=== PATIENT | female | born 1995 | race Caucasian/White ===

== ENCOUNTER 2017-04-25 16:32 | Observation (INO) | payer OTHER ==
[~2017-04-25] VITALS: Ht 157.5 cm; Wt 59.1 kg
[2017-04-25 16:54] VITALS: BP 136/90; PULSE 97; RESP 15; TEMP 98.5; O2SAT 100
[2017-04-25] MEDS ORDERED: MORPHINE SULFATE 2 MG/ML INJ IV PUSH ONE (18:00)
--- NOTE | 2017-04-25 18:00 | PD ---
HPI Chief Complaint: Abdominal Pain Time Seen by Provider: 17:49 Travel History International Travel<30 days: No Contact w/Intl Traveler<30days: No Traveled to known affect area: No History of Present Illness HPI 21yo F with no PMH presents to the ED with c/o right lower abdominal pain, fever today. Said she has been having vomiting after eating for about a month. However, had 101F fever today and started having sharp RLQ pain today. Pt vomited after eating at 1:30pm today. Went to PMD and was sent to the ED for further evaluation. Denies chest pain, sob, dysuria, hematuria, vaginal bleeding or discharge. Denies any PSH. PFSH Past Medical History Medical other: Yes (HYPOGLYCEMIC ) ?: Not LMP: 04/18/2017 Past Surgical History Surgical History: No Previous Surgery Social History Alcohol Use: Yes (OCC) Tobacco Use: No Substance Use: No Allergies-Medications (Allergen,Severity, Reaction): Uncoded Allergies: TEMP CHANGE ALLERGY (Adverse Reaction, Intermediate, 04/25/17) PT BREAKS OUT INTO HIVES WITH MODERATE TEMP CHANGES Review of Systems Except as stated in HPI: all other systems reviewed are Neg Physical Exam Narrative GENERAL: 21yo F in mild distress. SKIN: Focused skin assessment warm/dry. HEAD: Atraumatic. Normocephalic. CARDIOVASCULAR: Regular rate and rhythm. No murmur appreciated. RESPIRATORY: No accessory muscle use. Clear to auscultation. Breath sounds equal bilaterally. GASTROINTESTINAL: Abdomen soft, +TTP RLQ. No rebound tenderness or guarding. PELVIC: +White vaginal discharge. No CMT or adnexal tenderness bilaterally. MUSCULOSKELETAL: No obvious deformities. No clubbing. No cyanosis. No edema. NEUROLOGICAL: Awake and alert. No obvious cranial nerve deficits. Motor grossly within normal limits. Normal speech. PSYCHIATRIC: Appropriate mood and affect; insight and judgment normal. Data Data Last Documented VS Vital Signs Date Time Temp Pulse Resp B/P (MAP) Pulse Ox O2 Delivery O2 Flow Rate FiO2 04/25/17 20:39 16 04/25/17 16:54 98.5 97 136/90 (105) 100 Orders Orders Complete Blood Count With Diff (04/25/17 16:56) Comprehensive Metabolic Panel (04/25/17 16:56) Lipase (04/25/17 16:56) Prothrombin Time / Inr (Pt) (04/25/17 16:56) Act Partial Throm Time (Ptt) (04/25/17 16:56) Urinalysis - C+S If Indicated (04/25/17 16:56) Ed Urine Pregnancytest Poc (04/25/17 16:56) Ct Abd/Pel W Iv Contrast(Rout) (04/25/17 ) Morphine Inj (Morphine Inj) (04/25/17 18:00) NPO (04/25/17 18:01) Iohexol 350 Inj (Omnipaque 350 Inj) (04/25/17 18:42) Gc And Chlamydia Pcr (04/25/17 20:23) Wet Prep Profile (04/25/17 20:23) Us Pelvis Comp W Dop Transvag (04/25/17 20:23) Admit Order (Ed Use Only) (04/25/17 22:49) Consult General Surgery (04/25/17 ) Labs Laboratory Tests Test 04/25/17 19:30 04/25/17 19:55 04/25/17 20:33 White Blood Count 5.2 TH/MM3 Red Blood Count 4.85 MIL/MM3 Hemoglobin 14.0 GM/DL Hematocrit 40.5 % Mean Corpuscular Volume 83.4 FL Mean Corpuscular Hemoglobin 28.8 PG Mean Corpuscular Hemoglobin Concent 34.5 % Red Cell Distribution Width 13.1 % Platelet Count 287 TH/MM3 Mean Platelet Volume 8.4 FL Neutrophils (%) (Auto) 60.8 % Lymphocytes (%) (Auto) 29.6 % Monocytes (%) (Auto) 7.1 % Eosinophils (%) (Auto) 1.3 % Basophils (%) (Auto) 1.2 % Neutrophils # (Auto) 3.1 TH/MM3 Lymphocytes # (Auto) 1.5 TH/MM3 Monocytes # (Auto) 0.4 TH/MM3 Eosinophils # (Auto) 0.1 TH/MM3 Basophils # (Auto) 0.1 TH/MM3 CBC Comment DIFF FINAL Differential Comment Prothrombin Time 10.8 SEC Prothromb Time International Ratio 1.1 RATIO Activated Partial Thromboplast Time 25.9 SEC Blood Urea Nitrogen 13 MG/DL Creatinine 0.82 MG/DL Random Glucose 80 MG/DL Total Protein 7.5 GM/DL Albumin 4.2 GM/DL Calcium Level 9.1 MG/DL Alkaline Phosphatase 64 U/L Aspartate Amino Transf (AST/SGOT) 21 U/L Alanine Aminotransferase (ALT/SGPT) 34 U/L Total Bilirubin 0.6 MG/DL Sodium Level 137 MEQ/L Potassium Level 3.5 MEQ/L Chloride Level 104 MEQ/L Carbon Dioxide Level 26.3 MEQ/L Anion Gap 7 MEQ/L Estimat Glomerular Filtration Rate 86 ML/MIN Lipase 163 U/L Urine Color LIGHT-YELLOW Urine Turbidity CLEAR Urine pH 7.0 Urine Specific [place] GREATER THAN 1.050 Urine Protein 30 mg/dL Urine Glucose (UA) NEG mg/dL Urine Ketones 10 mg/dL Urine Occult Blood NEG Urine Nitrite NEG Urine Bilirubin NEG Urine Urobilinogen LESS THAN 2.0 MG/DL Urine Leukocyte Esterase NEG Urine RBC 1 /hpf Urine WBC LESS THAN 1 /hpf Urine Squamous Epithelial Cells 3 /hpf Microscopic Urinalysis Comment CULT NOT INDICATED Clue Cells (Wet Prep) NONE SEEN Vaginal Trichomonas (Wet Prep) NONE SEEN Vaginal Yeast (Wet Prep) NONE SEEN Chlamydia trachomatis DNA (PCR) NOT DETECTED Neisseria gonorrhoeae DNA (PCR) NOT DETECTED MDM Medical Decision Making Medical Screen Exam Complete: Yes Emergency Medical Condition: Yes Differential Diagnosis Appendicitis vs. cystitis vs. colitis vs. nephrolithiasis Narrative Course 21yo F with fever, nausea and RLQ pain today. Pt said she has also been vomiting after eating for 1 month. Pt is afebrile here but said she had temp of 101F at home. Labs reviewed, no leukocytosis. H/H normal. CMP unremarkable. Lipase normal. CT a/p showed no acute abnormality. The appendix is not discreetly identified though there are no inflammatory changes in the right lower quadrant. Pt given 2mg of morphine and pain has improved but stringing machine tender to palpation in RLQ. Said she actually does have vaginal discharge but has white discharge all the time so she initially said no. Pelvic showed small amount of white vaginal discharge but unremarkable exam otherwise. Wet prep negative. US pelvis showed no adnexal mass or free fluid. Normal doppler flow present bilaterally. Pt reevaluated and said she still has pain about 5-6 out of 10. Abdomen is soft, +TTP RLQ. No rebound tenderness or guarding. Pt is well appearing but unknown why she is having pain. Since the appendix is not identified, will admit for observation for serial abdominal exam. Discussed with general surgeon Dr. Guzman who is health information technician and agrees to see the patient. Routine surgery consult placed. Discussed with Dr. Flynn's PA and accepted to her service. Diagnosis Primary Impression: Abdominal pain Qualified Codes: R10.31 - Right lower quadrant pain Admitting Information Admitting Physician Requests: Fiona Amador DO Apr 25, 2017 18:00
[2017-04-25] MEDS ORDERED: IOHEXOL 350 MG/ML 10 ML VIAL (for RAD DIAG) IVCONTRAST ONE (18:42)
--- NOTE | 2017-04-25 19:09 | RADRPT ---
EXAM DATE/TIME: 04/25/2017 18:32 [facility] COMPARISON: No previous studies available for comparison. INDICATIONS : Diffuse lower right sided abdomen pain. IV CONTRAST: 76 cc Omnipaque 350 (iohexol) IV ORAL CONTRAST: No oral contrast ingested. RADIATION DOSE: 6.01 CTDIvol (mGy) MEDICAL HISTORY : None SURGICAL HISTORY : None. ENCOUNTER: Initial ACUITY: 1 day PAIN SCALE: 9/10 LOCATION: Right lower quadrant TECHNIQUE: Volumetric scanning of the abdomen and pelvis was performed. Using automated exposure control and ad justment of the mA and/or kV according to patient size, radiation dose was kept as low as reasonably achievable to obtain optimal diagnostic quality images. DICOM format image data is available electro nically for review and comparison. FINDINGS: LOWER LUNGS: The visualized lower lungs are clear. LIVER: Homogeneous density without lesion. There is no dilation of the biliary tree. No calcified gallston es. SPLEEN: Normal size without lesion. PANCREAS: Within normal limits. KIDNEYS: Normal in size and shape. There is no mass, stone or hydronephrosis. ADRENAL GLANDS: Within normal limits. VASCULAR: There is no aortic aneurysm. BOWEL/MESENTERY: The stomach, small bowel, and colon demonstrate no acute abnormality. There is no free intraperitone al air or fluid. The appendix is not discretely identified though there are no inflammatory changes i n the right lower quadrant. ABDOMINAL WALL: Within normal limits. RETROPERITONEUM: There is no lymphadenopathy. BLADDER: No wall thickening or mass. REPRODUCTIVE: Within normal limits. INGUINAL: There is no lymphadenopathy or hernia. MUSCULOSKELETAL: Within normal limits for patient age. CONCLUSION: 1. No evidence of acute abdominal or pelvic process. No masses are identified. Sulaiman Lizarraga MD on April 25, 2017 at 19:06 Board Certified Radiologist. This report was verified electronically.
[2017-04-25 19:48] LABS: AUTOMATED NEUTROPHIL # 3.1 TH/MM3 (1.8-7.7); BASOPHIL # 0.1 TH/MM3 (0-0.2); BASOPHIL % 1.2 % (0.0-2.0); EOSINOPHIL # 0.1 TH/MM3 (0-0.4); EOSINOPHIL % 1.3 % (0.0-4.0); HEMATOCRIT 40.5 % (35.0-46.0); LYMPH % 29.6 % (9.0-44.0); LYMPHOCYTE # 1.5 TH/MM3 (1.0-4.8); MEAN CELL VOLUME 83.4 FL (80.0-100.0); MEAN CORPUSCULAR HEMOGLOBIN 28.8 PG (27.0-34.0); MEAN CORPUSCULAR HGB CONC 34.5 % (32.0-36.0); MEAN PLATELET VOLUME 8.4 FL (7.0-11.0); MONO % 7.1 % (0.0-8.0); MONOCYTE # 0.4 TH/MM3 (0-0.9); NEUT % 60.8 % (16.0-70.0); PLATELET COUNT 287 TH/MM3 (150-450); RED BLOOD COUNT 4.85 MIL/MM3 (4.00-5.30); RED CELL DISTRIBUTION WIDTH 13.1 % (11.6-17.2); WHITE BLOOD COUNT 5.2 TH/MM3 (4.0-11.0)
[2017-04-25 19:57] LABS: INTERNATIONAL NORMALIZED RATIO 1.1 RATIO; PROTHROMBIN TIME - PATIENT 10.8 SEC (9.8-11.6)
[2017-04-25 20:00] VITALS: BP 132/78; PULSE 88; RESP 16; O2SAT 100
[2017-04-25 20:04] LABS: ALBUMIN 4.2 GM/DL (3.4-5.0); AST (GOT) 21 U/L (15-37); BICARBONATE 26.3 MEQ/L (21.0-32.0); BLOOD UREA NITROGEN 13 MG/DL (7-18); CALCIUM 9.1 MG/DL (8.5-10.1); CHLORIDE 104 MEQ/L (98-107); CREATININE 0.82 MG/DL (0.50-1.00); GLOMERULAR FILTRATION RATE 86 ML/MIN (>89); GLUCOSE,RANDOM 80 MG/DL (74-106); SODIUM (NA) 137 MEQ/L (136-145)
[2017-04-25 20:07] LABS: ALKALINE PHOSPHATASE 64 U/L (45-117); ALT (GPT) 34 U/L (10-53); TOTAL BILIRUBIN ADULT 0.6 MG/DL (0.2-1.0); TOTAL PROTEIN 7.5 GM/DL (6.4-8.2)
[2017-04-25 21:15] LABS: BILIRUBIN, URINE NEG (NEG); BLOOD, URINE NEG (NEG); GLUCOSE,URINE NEG (NEG); KETONE, URINE 10 mg/dL (NEG); NITRITE,URINE NEG (NEG); SQUAMOUS EPITHELIAL CELL URINE 3 /hpf (0-5); URINE COLOR LIGHT-YELLOW (YELLW/STRAW); URINE LEUKOCYTE ESTERASE NEG (NEG)
--- NOTE | 2017-04-25 22:00 | RADRPT ---
EXAM DATE/TIME: 04/25/2017 21:11 [facility] COMPARISON: No previous studies available for comparison. INDICATIONS : Pelvic pain. MEDICAL HISTORY : Hypoglycemia. Alcohol use. SURGICAL HISTORY : None. ENCOUNTER: Initial ACUITY: 1 month PAIN SCORE: 4/10 LOCATION: Bilateral pelvis MEASUREMENTS: UTERUS: 6.7 x 4.1 x 3.0 cm ENDOMETRIAL STRIPE: 3 mm RIGHT OVARY: 3.5 x 2.4 x 1.8 cm LEFT OVARY: 2.3 x 2.4 x 1.8 cm cm FINDINGS: Ultrasound pelvis and uterus are normal size, shape and echogenicity without focal lesion. No free fl uid or adnexal masses are seen. Examination of right ovary demonstrates normal size, shape and echogenicity. Examination of the left ovary demonstrates normal size shape and echogenicity. Normal Doppler flow is present bilaterally. CONCLUSION: 1. Unremarkable ultrasound examination of the pelvis. Sulaiman Lizarraga MD on April 25, 2017 at 21:58 Board Certified Radiologist. This report was verified electronically.
[2017-04-25 23:00] VITALS: BP 130/74; PULSE 78; RESP 16; O2SAT 100
[2017-04-25] MEDS ORDERED: NALOXONE HCL 0.4 MG/ML AMP IV PUSH PRN (23:00)
[2017-04-25] MEDS ORDERED: ACETAMINOPHEN 325 MG TAB PO PRN (23:00)
[2017-04-25] MEDS ORDERED: SODIUM CHLOR 0.9% 1000 ML INJ 1,000 ML IV SCH (23:00)
--- NOTE | 2017-04-25 23:22 | HHI.HP ---
HPI Service [facility] Primary Care Physician No Primary Care Physician Admission Diagnosis Right lower abdominal pain Diagnoses: Chief Complaint: RLQ pain Travel History International Travel<30 Days: No Contact w/Intl Traveler <30 Da: No Traveled to Known Affected Are: No History of Present Illness 21 y/o female with no medical history presented to the ED with complaints of abdominal pain. Patient states for the last month she has been vomiting when she eats and this morning she developed a fever of 101 with RLQ abdominal pain. She states the pain was an 8/10, intermittent, stabbing to the RLQ with no radiation, and with associated nausea, worse with palpation. She states the morphine has helped lesson the pain. She was seen at her pcp office and was told to come to the hospital for evaluation. She denies any chest pain, or sob. Review of Systems Except as stated in HPI: all other systems reviewed are Neg Past Family Social History Past Medical History hypoglycemia at times Past Surgical History Patient denies any surgical history Allergies: Uncoded Allergies: TEMP CHANGE ALLERGY (Adverse Reaction, Intermediate, 04/25/17) PT BREAKS OUT INTO HIVES WITH MODERATE TEMP CHANGES Active Ordered Medications Current Medications Medications (Trade) Dose Ordered Sig/Roxanne Route Start Time Stop Time Status Last Admin (NS Flush) 2 ml UNSCH PRN IV FLUSH 04/25/17 23:00 (NS Flush) 2 ml BID IV FLUSH 04/26/17 09:00 (Tylenol) 650 mg Q4H PRN PO 04/25/17 23:00 (Zofran Inj) 4 mg Q6H PRN IVP 04/25/17 23:00 04/25/17 23:53 (Narcan Inj) 0.4 mg UNSCH PRN IV PUSH 04/25/17 23:00 (Morphine Inj) 2 mg Q3H PRN IV PUSH 04/25/17 23:00 (Morphine Inj) 4 mg Q3H PRN IV PUSH 04/25/17 23:00 04/25/17 23:52 Dextrose/Sodium Chloride 1,000 ml @ 84 mls/hr [id number] IV 04/26/17 01:15 04/26/17 01:17 Family History Patient denies any family history, no dm or heart disease Social History Patient denies any tobacco, or alcohol use. Physical Exam Vital Signs Vital Signs Date Time Temp Pulse Resp B/P (MAP) Pulse Ox O2 Delivery O2 Flow Rate FiO2 04/25/17 20:39 16 04/25/17 16:54 98.5 97 15 136/90 (105) 100 Physical Exam GENERAL: This is a well-nourished, well-developed patient, in no apparent distress. SKIN: No rashes, ecchymoses or lesions. Cool and dry. HEAD: Atraumatic. Normocephalic. EYES: Pupils equal round and reactive. ENT: Nose without bleeding, purulent drainage or septal hematoma. Airway patent. NECK: Trachea midline. No JVD or lymphadenopathy. Supple, nontender, no meningeal signs. CARDIOVASCULAR: Regular rate and rhythm without murmurs, gallops, or rubs. RESPIRATORY: Clear to auscultation. Breath sounds equal bilaterally. No wheezes , rales, or rhonchi. GASTROINTESTINAL: Abdomen soft, RLQ tenderness, nondistended. No hepato- splenomegaly, or palpable masses. No guarding. MUSCULOSKELETAL: Extremities without clubbing, cyanosis, or edema. No joint tenderness, effusion, or edema noted. No calf tenderness. NEUROLOGICAL: Awake and alert.Motor and sensory grossly within normal limits. Normal speech. Laboratory Laboratory Tests Test 04/25/17 19:30 04/25/17 19:55 04/25/17 20:33 White Blood Count 5.2 Red Blood Count 4.85 Hemoglobin 14.0 Hematocrit 40.5 Mean Corpuscular Volume 83.4 Mean Corpuscular Hemoglobin 28.8 Mean Corpuscular Hemoglobin Concent 34.5 Red Cell Distribution Width 13.1 Platelet Count 287 Mean Platelet Volume 8.4 Neutrophils (%) (Auto) 60.8 Lymphocytes (%) (Auto) 29.6 Monocytes (%) (Auto) 7.1 Eosinophils (%) (Auto) 1.3 Basophils (%) (Auto) 1.2 Neutrophils # (Auto) 3.1 Lymphocytes # (Auto) 1.5 Monocytes # (Auto) 0.4 Eosinophils # (Auto) 0.1 Basophils # (Auto) 0.1 CBC Comment DIFF FINAL Differential Comment Prothrombin Time 10.8 Prothromb Time International Ratio 1.1 Activated Partial Thromboplast Time 25.9 Blood Urea Nitrogen 13 Creatinine 0.82 Random Glucose 80 Total Protein 7.5 Albumin 4.2 Calcium Level 9.1 Alkaline Phosphatase 64 Aspartate Amino Transf (AST/SGOT) 21 Alanine Aminotransferase (ALT/SGPT) 34 Total Bilirubin 0.6 Sodium Level 137 Potassium Level 3.5 Chloride Level 104 Carbon Dioxide Level 26.3 Anion Gap 7 Estimat Glomerular Filtration Rate 86 Lipase 163 Urine Color LIGHT-YELLOW Urine Turbidity CLEAR Urine pH 7.0 Urine Specific [place] GREATER THAN 1.050 Urine Protein 30 Urine Glucose (UA) NEG Urine Ketones 10 Urine Occult Blood NEG Urine Nitrite NEG Urine Bilirubin NEG Urine Urobilinogen LESS THAN 2.0 Urine Leukocyte Esterase NEG Urine RBC 1 Urine WBC LESS THAN 1 Urine Squamous Epithelial Cells 3 Microscopic Urinalysis Comment CULT NOT INDICATED Clue Cells (Wet Prep) NONE SEEN Vaginal Trichomonas (Wet Prep) NONE SEEN Vaginal Yeast (Wet Prep) NONE SEEN Result Diagram: 04/25/17192904/25/17 193 Imaging Last Impressions Abdomen/Pelvis/Transvag US 04/25/172022 Signed Impressions: Service Date/Time: Tuesday, April 25, 2017 21:11 - CONCLUSION: 1. Unremarkable ultrasound examination of the pelvis. Sulaiman Lizarraga MD Abdomen/Pelvis CT 04/25/17 0000 Signed Impressions: Service Date/Time: Tuesday, April 25, 2017 18:32 - CONCLUSION: 1. No evidence of acute abdominal or pelvic process. No masses are identified. MD Kvng Fisheri VTE Risk Assessment Caprini VTE Risk Assessment: No/Low Risk (score <= 1) Caprini Risk Assessment Model Point Value = 1 Point Value = 2 Point Value = 3 Point Value = 5 Age 41-60 Minor surgery BMI > 25 kg/m2 Swollen legs Varicose veins or History of unexplained or recurrent spontaneous Oral contraceptives or hormone replacement Sepsis (< 1 month) Serious lung disease, including pneumonia (< 1 month) Abnormal pulmonary function Acute myocardial infarction Congestive heart failure (< 1 month) History of inflammatory bowel disease Medical patient at bed rest Age 61-74 Arthroscopic surgery Major open surgery (> 45 min) Laparoscopic surgery (> 45 min) Malignancy Confined to bed (> 72 hours) Immobilizing plaster cast Central venous access Age >= 75 History of VTE Family history of VTE Factor V Leiden Prothrombin [id number] Lupus anticoagulant Anticardiolipin antibodies Elevated serum homocysteine Heparin-induced thrombocytopenia Other congenital or acquired thrombophilia Stroke (< 1 month) Elective arthroplasty Hip, pelvis, or leg fracture Acute spinal cord injury (< 1 month) Prophylaxis Regimen Total Risk Factor Score Risk Level Prophylaxis Regimen 0-1 Low Early ambulation 2 Moderate Order ONE of the following: *Sequential Compression Device (SCD) *Heparin 5000 units SQ BID 3-4 Higher Order ONE of the following medications: *Heparin 5000 units SQ TID *Enoxaparin/Lovenox 40 mg SQ daily (WT < 150 kg, CrCl > 30 mL/min) *Enoxaparin/Lovenox 30 mg SQ daily (WT < 150 kg, CrCl > 10-29 mL/min) *Enoxaparin/Lovenox 30 mg SQ BID (WT < 150 kg, CrCl > 30 mL/min) AND/OR *Sequential Compression Device (SCD) 5 or more Highest Order ONE of the following medications: *Heparin 5000 units SQ TID (Preferred with Epidurals) *Enoxaparin/Lovenox 40 mg SQ daily (WT < 150 kg, CrCl > 30 mL/min) *Enoxaparin/Lovenox 30 mg SQ daily (WT < 150 kg, CrCl > 10-29 mL/min) *Enoxaparin/Lovenox 30 mg SQ BID (WT < 150 kg, CrCl > 30 mL/min) AND *Sequential Compression Device (SCD) Assessment and Plan Problem List: (1) Abdominal pain ICD Code: R10.9 - Unspecified abdominal pain Status: Acute Assessment and Plan 21 y/o female with no medical history presented to the ED with complaints of abdominal pain. Abdominal pain, possible appendicitis CT abdomen reviewed unremarkable, appendix could not be visualized. -Consult general surgery for recommendations -Pain management with IV Morphine -IVF for hydration, Patient history or hypoglycemia, d51/2ns DVT prophylaxis: SCDs Discussed Condition With Patient and RN Problem Qualifiers (1) Abdominal pain: Qualified Codes: R10.31 - Right lower quadrant pain Odette Willoughby Apr 25, 2017 23:22
[2017-04-25] MEDS: MORPHINE SULFATE 4 MG/ML INJ IV PUSH PRN (23:52)
[2017-04-25] MEDS: ONDANSETRON HCL 4 MG/2 ML VIAL IVP PRN (23:53)
[2017-04-26 01:12] VITALS: BP 100/56; PULSE 61; RESP 16; TEMP 98.3; O2SAT 98
[2017-04-26] MEDS: DEXT 5%-NACL 0.45% 1000 ML INJ 1,000 ML IV SCH ×3 (01:17→21:31)
[2017-04-26 05:21] VITALS: BP 105/58; PULSE 76; RESP 16; TEMP 98.5; O2SAT 99
[2017-04-26] MEDS: SODIUM CHLORIDE 0.9% FLUSH 10 ML FLUSH IV FLUSH PRN ×2 (05:40→06:29)
[2017-04-26] MEDS: MORPHINE SULFATE 4 MG/ML INJ IV PUSH PRN ×2 (05:40→15:06)
[2017-04-26] MEDS: ONDANSETRON HCL 4 MG/2 ML VIAL IVP PRN (06:29)
[2017-04-26 07:01] LABS: BASOPHIL % 0.5 % (0.0-2.0); EOSINOPHIL # 0.1 TH/MM3 (0-0.4); EOSINOPHIL % 3.2 % (0.0-4.0); HEMATOCRIT 39.7 % (35.0-46.0); HEMOGLOBIN 13.7 GM/DL (11.6-15.3); LYMPH % 38.5 % (9.0-44.0); LYMPHOCYTE # 1.5 TH/MM3 (1.0-4.8); MEAN CELL VOLUME 84.6 FL (80.0-100.0); MEAN CORPUSCULAR HEMOGLOBIN 29.2 PG (27.0-34.0); MEAN CORPUSCULAR HGB CONC 34.5 % (32.0-36.0); MEAN PLATELET VOLUME 8.7 FL (7.0-11.0); MONOCYTE # 0.3 TH/MM3 (0-0.9); NEUT % 49.8 % (16.0-70.0); PLATELET COUNT 222 TH/MM3 (150-450); RED BLOOD COUNT 4.69 MIL/MM3 (4.00-5.30); RED CELL DISTRIBUTION WIDTH 13.4 % (11.6-17.2)
[2017-04-26 07:23] LABS: BICARBONATE 26.4 MEQ/L (21.0-32.0); CALCIUM 8.6 MG/DL (8.5-10.1); CREATININE 0.87 MG/DL (0.50-1.00)
[2017-04-26] MEDS: SODIUM CHLORIDE 0.9% FLUSH 10 ML FLUSH IV FLUSH SCH ×2 (08:13→21:00)
[2017-04-26 09:16] VITALS: BP 124/76; PULSE 81; RESP 18; TEMP 97.7; O2SAT 98
[2017-04-26] MEDS: MORPHINE SULFATE 2 MG/ML INJ IV PUSH PRN ×3 (09:30→18:17)
--- NOTE | 2017-04-26 10:11 | PD.CONS ---
cc: Alex Guzman MD HPI Service General Surgery Consult Requested By Odette DE LA O Reason for Consult RLQ abdominal pain Primary Care Physician No Primary Care Physician History of Present Illness This is a 21 year old female with no medical history who developed RLQ abdominal pain yesterday. She was in her usual state of health prior to that. She reports nausea without any vomiting. She had laboratory work that was essentially unremarkable. She had a CT abdomen pelvis which showed non visualization of the appendix. The patient reports sharp and constant abdominal pain. Her LMP was last week. Her last BM was yesterday. A General Surgery consultation has been requested. Review of Systems Constitutional: COMPLAINS OF: Fever, Chills, DENIES: Fatigue Endocrine: COMPLAINS OF: Heat/cold intolerance, DENIES: Polydipsia, Polyuria, Polyphagia Eyes: DENIES: Diplopia, Eye inflammation Ears, nose, mouth, throat: DENIES: Hearing loss Respiratory: DENIES: Cough Cardiovascular: DENIES: Chest pain Gastrointestinal: COMPLAINS OF: Abdominal pain, Nausea, DENIES: Vomiting Genitourinary: DENIES: Urinary frequency Musculoskeletal: DENIES: Joint pain Integumentary: DENIES: Abnormal pigmentation Hematologic/lymphatic: DENIES: Bruising Immunologic/allergic: DENIES: Eczema Neurologic: DENIES: Headache, Localized weakness Psychiatric: DENIES: Confusion, Mood changes Past Family Social History Past Medical History None Past Surgical History None Reported Medications None Allergies: Uncoded Allergies: TEMP CHANGE ALLERGY (Adverse Reaction, Intermediate, 04/25/17) PT BREAKS OUT INTO HIVES WITH MODERATE TEMP CHANGES Active Ordered Medications Current Medications Medications (Trade) Dose Ordered Sig/Roxanne Route Start Time Stop Time Status Last Admin (NS Flush) 2 ml UNSCH PRN IV FLUSH 04/25/17 23:00 04/26/17 06:29 (NS Flush) 2 ml BID IV FLUSH 04/26/17 09:00 (Tylenol) 650 mg Q4H PRN PO 04/25/17 23:00 (Zofran Inj) 4 mg Q6H PRN IVP 04/25/17 23:00 04/26/17 06:29 (Narcan Inj) 0.4 mg UNSCH PRN IV PUSH 04/25/17 23:00 (Morphine Inj) 2 mg Q3H PRN IV PUSH 04/25/17 23:00 04/26/17 09:30 (Morphine Inj) 4 mg Q3H PRN IV PUSH 04/25/17 23:00 04/26/17 05:40 Dextrose/Sodium Chloride 1,000 ml @ 84 mls/hr [id number] IV 04/26/17 01:15 04/26/17 01:17 Family History Noncontributory Social History Denies tobacco use Denies ETOH use Denies illicit drug use Works for [employer]. Just moved to the [facility] from [place]. Has a black labrador therapy dog. Physical Exam Vital Signs Vital Signs Date Time Temp Pulse Resp B/P (MAP) Pulse Ox O2 Delivery O2 Flow Rate FiO2 04/26/17 09:16 97.7 81 18 124/76 (92) 98 04/26/17 05:21 98.5 76 16 105/58 (74) 99 04/26/17 01:12 98.3 61 16 100/56 (71) 98 04/26/17 00:14 04/25/17 23:00 78 16 130/74 (92) 100 Room Air 04/25/17 20:39 16 04/25/17 20:00 88 16 132/78 (96) 100 Room Air 04/25/17 16:54 98.5 97 15 136/90 (105) 100 Physical Exam GENERAL: 21 year old female resting in bed in moderate discomfort from abdominal pain. SKIN: Warm and dry. HEAD: Atraumatic. Normocephalic. EYES: Pupils equal and round. No scleral icterus. No injection or drainage. ENT: No nasal bleeding or discharge. Mucous membranes pink and moist. NECK: Trachea midline. CARDIOVASCULAR: Regular rate and rhythm. RESPIRATORY: No accessory muscle use. Clear to auscultation. Breath sounds equal bilaterally. GASTROINTESTINAL: Abdomen soft, nondistended. RLQ tenderness with minimal palpation. Umbilicus piercing in place. No scars or hernias present. MUSCULOSKELETAL: Extremities without clubbing, cyanosis, or edema. No obvious deformities. NEUROLOGICAL: Awake and alert. No obvious cranial nerve deficits. Motor grossly within normal limits. Five out of 5 muscle strength in the arms and legs. Normal speech. PSYCHIATRIC: Appropriate mood and affect; insight and judgment normal. Laboratory Laboratory Tests Test 04/25/17 19:30 04/25/17 19:55 04/25/17 20:33 04/26/17 06:36 White Blood Count 5.2 4.0 Red Blood Count 4.85 4.69 Hemoglobin 14.0 13.7 Hematocrit 40.5 39.7 Mean Corpuscular Volume 83.4 84.6 Mean Corpuscular Hemoglobin 28.8 29.2 Mean Corpuscular Hemoglobin Concent 34.5 34.5 Red Cell Distribution Width 13.1 13.4 Platelet Count 287 222 Mean Platelet Volume 8.4 8.7 Neutrophils (%) (Auto) 60.8 49.8 Lymphocytes (%) (Auto) 29.6 38.5 Monocytes (%) (Auto) 7.1 8.0 Eosinophils (%) (Auto) 1.3 3.2 Basophils (%) (Auto) 1.2 0.5 Neutrophils # (Auto) 3.1 2.0 Lymphocytes # (Auto) 1.5 1.5 Monocytes # (Auto) 0.4 0.3 Eosinophils # (Auto) 0.1 0.1 Basophils # (Auto) 0.1 0.0 CBC Comment DIFF FINAL DIFF FINAL Differential Comment Prothrombin Time 10.8 Prothromb Time International Ratio 1.1 Activated Partial Thromboplast Time 25.9 Blood Urea Nitrogen 13 10 Creatinine 0.82 0.87 Random Glucose 80 92 Total Protein 7.5 Albumin 4.2 Calcium Level 9.1 8.6 Alkaline Phosphatase 64 Aspartate Amino Transf (AST/SGOT) 21 Alanine Aminotransferase (ALT/SGPT) 34 Total Bilirubin 0.6 Sodium Level 137 139 Potassium Level 3.5 3.8 Chloride Level 104 107 Carbon Dioxide Level 26.3 26.4 Anion Gap 7 6 Estimat Glomerular Filtration Rate 86 81 Lipase 163 Urine Color LIGHT-YELLOW Urine Turbidity CLEAR Urine pH 7.0 Urine Specific [place] GREATER THAN 1.050 Urine Protein 30 Urine Glucose (UA) NEG Urine Ketones 10 Urine Occult Blood NEG Urine Nitrite NEG Urine Bilirubin NEG Urine Urobilinogen LESS THAN 2.0 Urine Leukocyte Esterase NEG Urine RBC 1 Urine WBC LESS THAN 1 Urine Squamous Epithelial Cells 3 Microscopic Urinalysis Comment CULT NOT INDICATED Clue Cells (Wet Prep) NONE SEEN Vaginal Trichomonas (Wet Prep) NONE SEEN Vaginal Yeast (Wet Prep) NONE SEEN Chlamydia trachomatis DNA (PCR) NOT DETECTED Neisseria gonorrhoeae DNA (PCR) NOT DETECTED Result Diagram: 04/26/17 0636 04/26/1736 Imaging Last 48 hours Impressions Abdomen/Pelvis/Transvag US 04/25/172022 Signed Impressions: Service Date/Time: Tuesday, April 25, 2017 21:11 - CONCLUSION: 1. Unremarkable ultrasound examination of the pelvis. Sulaiman Lizarraga MD Abdomen/Pelvis CT 04/25/17 0000 Signed Impressions: Service Date/Time: Tuesday, April 25, 2017 18:32 - CONCLUSION: 1. No evidence of acute abdominal or pelvic process. No masses are identified. Sulaiman Lizarraga MD Assessment and Plan Problem List: (1) Acute abdomen ICD Codes: R10.0 - Acute abdomen Status: Acute (2) Localized peritonitis ICD Codes: K65.9 - Peritonitis, unspecified Status: Acute (3) Abdominal pain ICD Codes: R10.9 - Unspecified abdominal pain Status: Acute (4) Right lower quadrant abdominal pain ICD Codes: R10.31 - Right lower quadrant pain Status: Acute Assessment and Plan 21 year old female with RLQ abdominal pain with associated nausea -Will plan for diagnostic laparoscopy; laparoscopic appendectomy for this afternoon -NPO -IVF -Pain medications -Add Zosyn -Thank you for this consult; We will continue to follow Discussed Condition With Dr. Megan Kumar Attending Statement NOTE FOR SURGICAL ATTENDING, DR. ALEX GUZMAN Patient seen and examined in the emergency room. Reviewed imaging with Dr. Abran De La Torre Clinically she has a acute abdomen with peritonitis. The images do not help me in diagnosing the problem. I do not feel comfortable with just following her I think she would benefit from diagnostic laparoscopy. My clinical suspicion is she actually has appendicitis. This was discussed with the patient she appeared to understand I agree with above assessment and plan. The exam, history, and the medical decision-making described in the above note were completed with the assistance of the mid-level provider. I reviewed and agree with the findings presented. I attest that I had a [id number] encounter with the patient on the same day, and personally performed and documented my assessment and findings in the medical record. The following services were provided during this hospital visit: Chart data review, vital sign assessments/reviewing monitor data Review of consultations notes if present. Medication orders/review and/or management Ordering and/or reviewing lab tests Ordering and/or interpreting/reviewing x-rays and/or diagnostic studies Care of the patient and discussion of the patient with the care team Documentation time To help prompt me to consider important information that might be impacting today's encounter and assessment, information from prior notes written by myself or my colleagues may have been "brought forward/copy and pasted" into today's note. Problem Qualifiers (1) Abdominal pain: Qualified Codes: R10.31 - Right lower quadrant pain Prema Fishman/First Zay DE LA O Apr 26, 2017 10:11 Alex Guzman MD Apr 26, 2017 18:26
[2017-04-26] MEDS: PIPERACIL-TAZO 3.375 GM PREMIX 50 ML IV SCH ×2 (11:32→18:14)
[2017-04-26] MEDS ORDERED: PROPOFOL 200 MG/20 ML AMP IV ONE (12:00)
[2017-04-26] MEDS ORDERED: ROCURONIUM INJ 50 MG/5 ML SYRINGE IV PUSH ONE (12:00)
[2017-04-26] MEDS ORDERED: ONDANSETRON HCL 4 MG/2 ML VIAL IV ONE (12:00)
[2017-04-26] MEDS ORDERED: LIDOCAINE HCL 1% PF 5 ML SYRINGE OTHER ONE (12:00)
[2017-04-26] MEDS ORDERED: DEXAMETHASONE SOD PHOS 4 MG/ML VIAL IV ONE (12:00)
[2017-04-26 12:09] VITALS: BP 109/71; PULSE 60; RESP 18; TEMP 98; O2SAT 98
[2017-04-26] MEDS ORDERED: SODIUM CHLORID 0.9% 500 ML IV PRN (13:00)
[2017-04-26] MEDS ORDERED: CHLORHEXIDINE GLUCONATE 2 % 1 PACK (2 CLOTHS) TOPICAL PRN (13:00)
[2017-04-26] MEDS ORDERED: METOPROLOL TARTRATE 25 MG TAB PO PRN (13:00)
[2017-04-26] MEDS ORDERED: LACTATED RINGER'S 1000 ML IV PRN (13:00)
[2017-04-26] MEDS ORDERED: POVIDONE IODINE 5% (ANTISEPSIS KIT) 4 APPLICATIONS EACH NARE PRN (13:00)
--- NOTE | 2017-04-26 15:57 | HHI.PR ---
Subjective Remarks 21 y/o female with no medical history presented to the ED with complaints of abdominal pain. Patient states for the last month she has been vomiting when she eats and this morning she developed a fever of 101 with RLQ abdominal pain. She states the pain was an 8/10, intermittent, stabbing to the RLQ with no radiation, and with associated nausea, worse with palpation. She states the morphine has helped lesson the pain. She was seen at her pcp office and was told to come to the hospital for evaluation. She denies any chest pain, or sob. 04-26 TO GO FOR LAP APPY LATER TODAY LESS ABDOMINAL PAIN DW PT AND RN TAKING PAIN MEDS Objective Vitals Vital Signs Date Time Temp Pulse Resp B/P (MAP) Pulse Ox O2 Delivery O2 Flow Rate FiO2 04/26/17 12:09 98.0 60 18 109/71 (84) 98 04/26/17 09:16 97.7 81 18 124/76 (92) 98 04/26/17 05:21 98.5 76 16 105/58 (74) 99 04/26/17 01:12 98.3 61 16 100/56 (71) 98 04/26/17 00:14 04/25/17 23:00 78 16 130/74 (92) 100 Room Air 04/25/17 20:39 16 04/25/17 20:00 88 16 132/78 (96) 100 Room Air 04/25/17 16:54 98.5 97 15 136/90 (105) 100 I/O 04/25/17 04/25/17 04/25/17 04/26/17 04/26/17 04/26/17 07:00 15:00 23:00 07:00 15:00 23:00 Intake Total 1050 ml Balance 1050 ml Intake IV Total 1050 ml # Voids 1 1 Result Diagram: 04/26/17 0636 04/26/17 0636 Other Results Laboratory Tests Test 04/25/17 19:30 04/25/17 19:55 04/25/17 20:33 04/26/17 06:36 White Blood Count 5.2 TH/MM3 4.0 TH/MM3 Red Blood Count 4.85 MIL/MM3 4.69 MIL/MM3 Hemoglobin 14.0 GM/DL 13.7 GM/DL Hematocrit 40.5 % 39.7 % Mean Corpuscular Volume 83.4 FL 84.6 FL Mean Corpuscular Hemoglobin 28.8 PG 29.2 PG Mean Corpuscular Hemoglobin Concent 34.5 % 34.5 % Red Cell Distribution Width 13.1 % 13.4 % Platelet Count 287 TH/MM3 222 TH/MM3 Mean Platelet Volume 8.4 FL 8.7 FL Neutrophils (%) (Auto) 60.8 % 49.8 % Lymphocytes (%) (Auto) 29.6 % 38.5 % Monocytes (%) (Auto) 7.1 % 8.0 % Eosinophils (%) (Auto) 1.3 % 3.2 % Basophils (%) (Auto) 1.2 % 0.5 % Neutrophils # (Auto) 3.1 TH/MM3 2.0 TH/MM3 Lymphocytes # (Auto) 1.5 TH/MM3 1.5 TH/MM3 Monocytes # (Auto) 0.4 TH/MM3 0.3 TH/MM3 Eosinophils # (Auto) 0.1 TH/MM3 0.1 TH/MM3 Basophils # (Auto) 0.1 TH/MM3 0.0 TH/MM3 CBC Comment DIFF FINAL DIFF FINAL Differential Comment Prothrombin Time 10.8 SEC Prothromb Time International Ratio 1.1 RATIO Activated Partial Thromboplast Time 25.9 SEC Blood Urea Nitrogen 13 MG/DL 10 MG/DL Creatinine 0.82 MG/DL 0.87 MG/DL Random Glucose 80 MG/DL 92 MG/DL Total Protein 7.5 GM/DL Albumin 4.2 GM/DL Calcium Level 9.1 MG/DL 8.6 MG/DL Alkaline Phosphatase 64 U/L Aspartate Amino Transf (AST/SGOT) 21 U/L Alanine Aminotransferase (ALT/SGPT) 34 U/L Total Bilirubin 0.6 MG/DL Sodium Level 137 MEQ/L 139 MEQ/L Potassium Level 3.5 MEQ/L 3.8 MEQ/L Chloride Level 104 MEQ/L 107 MEQ/L Carbon Dioxide Level 26.3 MEQ/L 26.4 MEQ/L Anion Gap 7 MEQ/L 6 MEQ/L Estimat Glomerular Filtration Rate 86 ML/MIN 81 ML/MIN Lipase 163 U/L Urine Color LIGHT-YELLOW Urine Turbidity CLEAR Urine pH 7.0 Urine Specific [place] GREATER THAN 1.050 Urine Protein 30 mg/dL Urine Glucose (UA) NEG mg/dL Urine Ketones 10 mg/dL Urine Occult Blood NEG Urine Nitrite NEG Urine Bilirubin NEG Urine Urobilinogen LESS THAN 2.0 MG/DL Urine Leukocyte Esterase NEG Urine RBC 1 /hpf Urine WBC LESS THAN 1 /hpf Urine Squamous Epithelial Cells 3 /hpf Microscopic Urinalysis Comment CULT NOT INDICATED Clue Cells (Wet Prep) NONE SEEN Vaginal Trichomonas (Wet Prep) NONE SEEN Vaginal Yeast (Wet Prep) NONE SEEN Chlamydia trachomatis DNA (PCR) NOT DETECTED Neisseria gonorrhoeae DNA (PCR) NOT DETECTED Imaging Last Impressions Abdomen/Pelvis/Transvag US 04/25/172022 Signed Impressions: Service Date/Time: Tuesday, April 25, 2017 21:11 - CONCLUSION: 1. Unremarkable ultrasound examination of the pelvis. Sulaiman Lizarraga MD Abdomen/Pelvis CT 04/25/17 0000 Signed Impressions: Service Date/Time: Tuesday, April 25, 2017 18:32 - CONCLUSION: 1. No evidence of acute abdominal or pelvic process. No masses are identified. Sulaiman Lizarraga MD Objective Remarks GENERAL: AWAKE ALERT AND ORIENTED X3 TALKATIVE AND COOPERATIVE SKIN: Warm and dry. HEAD: Atraumatic. Normocephalic. EYES: Pupils equal and round. No scleral icterus. No injection or drainage. EOMI ENT: No nasal bleeding or discharge. Mucous membranes pink and moist. TONGUE MIDLINE NECK: Trachea midline. No JVD. SUPPLE CARDIOVASCULAR: Regular rate and rhythm. S1, S2 NO S3 NO S4 NO HEAVE OR THRILL RESPIRATORY: No accessory muscle use. Clear to auscultation. Breath sounds equal bilaterally. GASTROINTESTINAL: Abdomen soft, nondistended. Hepatic and splenic margins not palpable. TENDER RIGHT LOWER QUADRANT MUSCULOSKELETAL: Extremities without clubbing, cyanosis, or edema. No obvious deformities. NEUROLOGICAL: Awake and alert. No obvious cranial nerve deficits. Motor grossly within normal limits. Five out of 5 muscle strength in the arms and legs. Normal speech. PSYCHIATRIC: Appropriate mood and affect; insight and judgment normal. Medications and IVs Current Medications Morphine Sulfate (Morphine Inj) 2 mg ONCE ONCE IV PUSH Last administered on at 18:18; Start 04/25/17 at 18:00; Stop 04/25/17 at 18:01; Status DC Iohexol (Omnipaque 350 Inj) 76 ml STK-MED ONCE IVCONTRAST Last administered on 04/25/17at 18:44; Start 04/25/17 at 18:42; Stop 2/27/18 at 18:43; Status DC Sodium Chloride 1,000 ml @ 100 mls/hr Q10H IV Last administered on 04/25/17at 23:53; Start 04/25/17 at 23:00; Stop 04/26/17 at 01:05; Status DC Sodium Chloride (NS Flush) 2 ml UNSCH PRN IV FLUSH FLUSH AFTER USING IV ACCESS Last administered on 04/26/17at 06:29; Start 04/25/17 at 23:00 Sodium Chloride (NS Flush) 2 ml BID IV FLUSH ; Start 04/26/17 at 09:00 Acetaminophen (Tylenol) 650 mg Q4H PRN PO TEMP > 100.4; Start 04/25/17 at 23:00 Ondansetron HCl (Zofran Inj) 4 mg Q6H PRN IVP NAUSEA OR VOMITING Last administered on 04/26/17at 06:29; Start 04/25/17 at 23:00 Naloxone HCl (Narcan Inj) 0.4 mg UNSCH PRN IV PUSH SEE LABEL COMMENTS; Start at 23:00 Morphine Sulfate (Morphine Inj) 2 mg Q3H PRN IV PUSH pain 1-5 Last administered on 04/26/17at 12:33; Start 04/25/17 at 23:00 Morphine Sulfate (Morphine Inj) 4 mg Q3H PRN IV PUSH pain >5 Last administered on 04/26/17at 15:06; Start 04/25/17 at 23:00 Dextrose/Sodium Chloride 1,000 ml @ 84 mls/hr [id number] IV Last administered on 04/26/17at 12:33; Start 04/26/17 at 01:15 Piperacillin Sod/ Tazobactam Sod 50 ml @ 100 mls/hr Q8H IV Last administered on 04/26/17at 11:32; Start 04/26/17 at 11:00 Lactated Ringer's 1,000 ml @ 30 mls/hr Q24H PRN IV SEE LABEL COMMENTS; Start at 13:00; Stop 04/29/17 at 12:59 Sodium Chloride 500 ml @ 30 mls/hr [id number] PRN IV SEE LABEL COMMENTS; Start at 13:00; Stop 04/29/17 at 12:59 Metoprolol Tartrate (Lopressor) 25 mg WET ROLLER PRN PO SEE LABEL COMMENTS; Start 04/26/17 at 13:00; Stop 04/29/17 at 12:59 Povidone Iodine (Betadine 5% Antisepsis Kit) 1 applic WET ROLLER PRN EACH NARE SEE LABEL COMMENTS; Start 04/26/17 at 13:00; Stop 04/29/17 at 12:59 Chlorhexidine Gluconate (Chlorhexidine 2% Cloth) 3 pack WET ROLLER PRN TOPICAL SEE LABEL COMMENTS; Start 04/26/17 at 13:00; Stop 04/29/17 at 12:59 A/P Problem List: (1) Abdominal pain ICD Code: R10.9 - Unspecified abdominal pain Status: Acute Assessment and Plan Assessment and Plan 21 y/o female with no medical history presented to the ED with complaints of abdominal pain. Abdominal pain, possible appendicitis- TO GO FOR LAP APPY TODAY WITH SURGERY CT abdomen reviewed unremarkable, appendix could not be visualized. -Consult general surgery for recommendations -Pain management with IV Morphine -IVF for hydration, Patient history or hypoglycemia, d51/2ns DVT prophylaxis: SCDs Discussed Condition With Patient and financial administration officer Planning PENDING SURGICAL CLEARANCE Problem Qualifiers (1) Abdominal pain: Qualified Codes: R10.31 - Right lower quadrant pain Nathan Marquez DO Apr 26, 2017 15:57
[2017-04-26] MEDS ORDERED: BUPIVACAINE/EPINEPHRINE 0.5% PF 30 ML VIAL ONE (16:03)
[2017-04-26 16:06] VITALS: BP 113/76; PULSE 66; RESP 18; TEMP 98.3; O2SAT 98
[2017-04-26] MEDS ORDERED: SUGAMMADEX SODIUM 200 MG/2 ML VIAL IV PUSH ONE (20:41)
--- NOTE | 2017-04-26 20:55 | HHI.PR ---
cc: Alex Guzman MD Immediate Post Op Note Procedure Date: Apr 26, 2017 Pre Op Diagnosis: (1) Abdominal pain (2) Localized peritonitis (3) Acute abdomen (4) Right lower quadrant abdominal pain Post Op Diagnosis: (1) Status post laparoscopic appendectomy (2) Abdominal pain (3) Localized peritonitis (4) Acute abdomen (5) Right lower quadrant abdominal pain Surgeon: Alex Guzman Assistant Toddler Teacher(s): Please refer to operating room records Procedure: Diagnostic laparoscopy Laparoscopic appendectomy Lysis of adhesions Findings: Abnormally adhesions to the cecum and proximal ascending colon Slightly abnormal appendix Normal ovary bilateral Normal uterus No evidence of Meckel's Normal gallbladder and liver Complications: None Specimen(s) removed: Appendix Estimated blood loss: Minimum Anesthesia: General Drains: None IVF Patient to: PACU Patient Condition: Good Implant/Devices: SEE IMPLANT LOG (if applicable) Date/Time of Procedure: SEE SURGICAL CARE RECORD Alex Guzman MD Apr 26, 2017 20:55
[2017-04-26] MEDS ORDERED: SODIUM CHLOR 0.9% 1000 ML INJ 1,000 ML IV SCH (20:56)
[2017-04-26] MEDS ORDERED: DO NOT ADM ANY ANTICOAGULANT DRUGS PRN (21:00)
[2017-04-26] MEDS ORDERED: ACETAMINOPHEN 325 MG TAB PO PRN (21:00)
[2017-04-26] MEDS ORDERED: Post-op Orders (for Pharmacy) XX ONE (21:00)
[2017-04-26] MEDS ORDERED: ACETAMINOPHEN/HYDROcodone 325 MG/5 MG TAB PO PRN (21:00)
[2017-04-26] MEDS ORDERED: ONDANSETRON HCL 4 MG/2 ML VIAL IV PUSH PRN (21:00)
[2017-04-26] MEDS ORDERED: *MEPERIDINE 25 MG INJ VIAL PERIprocedural Use ONLY ONE (21:02)
[2017-04-26] MEDS ORDERED: MIDAZOLAM HCL 2 MG/2 ML VIAL ONE (21:10)
[2017-04-26] MEDS ORDERED: *morphine SULFATE 10 MG/ML PERIprocedure ONLY ONE ×2 (21:17→22:09)
--- NOTE | 2017-04-26 21:40 | MP ---
cc: Alex Guzman MD DATE OF OPERATION: 04/26/2017 PREOPERATIVE DIAGNOSIS: Acute abdomen, right lower quadrant suspicious for appendicitis with negative imaging. POSTOPERATIVE DIAGNOSES: 1. Abnormal scar tissue from the distal cecum. 2. Proximal ascending colon scar tissue with pelvic appendix slightly deformed . 3. Normal bilateral ovaries. 4. Small amount of fluid in the pelvis. 5. Normal gallbladder, normal liver. 6. Normal terminal ileum with no evidence of Meckel's or Crohn's. PROCEDURE: 1. Diagnostic laparoscopy. 2. Laparoscopic appendectomy. ANESTHESIA: General. SURGEON: Alex Guzman MD INDICATIONS FOR PROCEDURE: This is a pleasant 21-year-old female who came into the hospital. She has been fairly healthy and had exquisite pain in the right lower quadrant. It was unrelenting. ER had done a fairly extensive workup including CT scan and pelvic ultrasound. She was watched overnight, but her pain progressed with nausea and more severe despite even her IV pain medicine. She had severe tenderness right at McBurney point; and with this increasing pain, reviewed the images with the radiologist. Even with these negative images, clinical examination consistent with peritonitis. Plans were made for above. DESCRIPTION OF PROCEDURE: The patient was taken to the operating room, placed in supine position. After anesthesia, her abdomen was prepped with Betadine. She has been on antibiotics. We make an incision just above the umbilicus through an umbilical ring site, which I told her we have to through to gain access to the abdomen, which she was fine with. We placed a Veress needle. The abdomen was insufflated to 15 mmHg. A 10-millimeter trocar was then placed. Two other working ports were placed, one above the pubic tubercle, one in between the 2 previously placed ports. We placed the camera. The liver was smooth, peritoneal surfaces were smooth. The gallbladder appeared normal. She had some abnormal adhesions right at McBurney point, in the cecum and proximal ascending colon. These were just taken down. I did not see any pathology in the cecum. It was just slightly distended with air, but it does not look abnormal other than the unusual adhesions. The appendix was way down in the pelvis with the right ovary. There was a small amount of fluid. I did not see the findings of a previously ovarian cyst. Both ovaries appear normal. The uterus appears normal. The appendix is elevated up. The mesentery of the appendix is somewhat edematous. This was taken down with the harmonic scalpel to the base of the appendix, doubly ligated with the PDS EndoLoop. The appendix was then amputated, placed in an EndoCatch and pulled out through the umbilical incision. We then ran the small bowel. I did not see any evidence of Crohn's disease or Meckel's diverticula. She has not much omentum. The adhesions from the distal cecum and proximal ascending colon were just taken down with harmonic scalpel. Again, I did not see any inflammatory process at the cecal or ascending colon area. We then irrigated copiously. All the irrigating solution was removed. We then removed the trocars and the umbilical port site was closed with a 0 Vicryl and all 3 skin sites were closed with a 4-0 Vicryl. Steri-Strips applied. Sterile bandage applied. Patient tolerated the procedure well and there were no immediate postoperative complications. MD LUZ MARIA Schaefer/DELIA , 09:10 PM , 09:38 PM JONEL
[2017-04-26] MEDS: KETOROLAC TROMETHAMINE 30 MG/ML (IVP) VIAL IVP PRN (22:21)
[2017-04-27 01:25] VITALS: BP 108/58; PULSE 65; RESP 16; TEMP 98.1; O2SAT 96
[2017-04-27] MEDS: HYDROmorphone HCL PF 2 MG/ML VIAL IV PUSH PRN ×2 (02:18→04:30)
[2017-04-27] MEDS: PIPERACIL-TAZO 3.375 GM PREMIX 50 ML IV SCH ×2 (04:15→11:08)
[2017-04-27 07:01] LABS: ALBUMIN 4.1 GM/DL (3.4-5.0); AST (GOT) 21 U/L (15-37); BLOOD UREA NITROGEN 5 MG/DL (7-18); CALCIUM 9.1 MG/DL (8.5-10.1); CHLORIDE 101 MEQ/L (98-107); CREATININE 0.75 MG/DL (0.50-1.00); GLOMERULAR FILTRATION RATE 96 ML/MIN (>89); GLUCOSE,RANDOM 119 MG/DL (74-106); MAGNESIUM 1.6 MG/DL (1.5-2.5); SODIUM (NA) 135 MEQ/L (136-145)
[2017-04-27 07:02] LABS: ALT (GPT) 30 U/L (10-53); PHOSPHORUS 3.9 MG/DL (2.5-4.9)
[2017-04-27 07:07] VITALS: BP 109/60; PULSE 65; RESP 16; TEMP 98.1; O2SAT 96
[2017-04-27 07:10] LABS: ALKALINE PHOSPHATASE 63 U/L (45-117); FREE T4 1.41 NG/DL (0.76-1.46); TOTAL BILIRUBIN ADULT 0.9 MG/DL (0.2-1.0); TOTAL PROTEIN 7.7 GM/DL (6.4-8.2)
[2017-04-27 07:12] LABS: AUTOMATED NEUTROPHIL # 14.3 TH/MM3 (1.8-7.7); BASOPHIL % 0.1 % (0.0-2.0); HEMATOCRIT 41.5 % (35.0-46.0); HEMOGLOBIN 14.5 GM/DL (11.6-15.3); LYMPH % 2.3 % (9.0-44.0); LYMPHOCYTE # 0.4 TH/MM3 (1.0-4.8); MEAN CELL VOLUME 84.9 FL (80.0-100.0); MEAN CORPUSCULAR HEMOGLOBIN 29.6 PG (27.0-34.0); MEAN CORPUSCULAR HGB CONC 34.9 % (32.0-36.0); MEAN PLATELET VOLUME 8.9 FL (7.0-11.0); MONO % 3.9 % (0.0-8.0); MONOCYTE # 0.6 TH/MM3 (0-0.9); NEUT % 93.7 % (16.0-70.0); PLATELET COUNT 242 TH/MM3 (150-450); RED BLOOD COUNT 4.89 MIL/MM3 (4.00-5.30); RED CELL DISTRIBUTION WIDTH 13.3 % (11.6-17.2); WHITE BLOOD COUNT 15.3 TH/MM3 (4.0-11.0)
[2017-04-27 08:00] VITALS: BP 104/56; PULSE 75; RESP 20; TEMP 97.6; O2SAT 98
[2017-04-27] MEDS: SODIUM CHLORIDE 0.9% FLUSH 10 ML FLUSH IV FLUSH SCH (09:00)
[2017-04-27] MEDS ORDERED: HYDR-3516 PO (10:26)
[2017-04-27 10:36] LABS: HEMOGLOBIN A1C 4.8 % (4.3-6.0)
[2017-04-27] MEDS: ACETAMINOPHEN/HYDROcodone 325 MG/5 MG TAB PO PRN ×3 (11:11→18:24)
[2017-04-27 12:00] VITALS: BP 104/59; PULSE 81; RESP 20; TEMP 97.3; O2SAT 98
[2017-04-27] MEDS ORDERED: NALOXONE HCL 0.4 MG/ML AMP IV PUSH PRN (13:30)
[2017-04-27] MEDS ORDERED: MAGNESIUM HYDROXIDE SUSP 30 ML CUP PO PRN (13:30)
[2017-04-27] MEDS ORDERED: SENNOSIDES 8.6 MG TAB PO PRN (13:30)
[2017-04-27] MEDS ORDERED: LACTULOSE SYRUP 20 GM/30 ML CUP PO PRN (13:30)
[2017-04-27] MEDS ORDERED: BISACODYL 10 MG SUPP RECTAL PRN (13:30)
[2017-04-27] MEDS: KETOROLAC TROMETHAMINE 30 MG/ML (IVP) VIAL IVP PRN (13:54)
--- NOTE | 2017-04-27 14:51 | HHI.PR ---
cc: Alex Guzman MD Subjective Subjective Notes DAILY PROGRESS NOTE FOR SURGICAL ATTENDING, DR. ALEX GUZMAN Resting in bed Feels hungry; had emesis after surgery last night Objective Vitals/I&O Vital Signs Date Time Temp Pulse Resp B/P (MAP) Pulse Ox O2 Delivery O2 Flow Rate FiO2 04/27/17 12:00 97.3 81 20 104/59 (74) 98 04/26/17 22:28 Room Air 04/26/17 22:15 2 Labs Laboratory Tests Test 04/27/17 05:35 White Blood Count 15.3 Red Blood Count 4.89 Hemoglobin 14.5 Hematocrit 41.5 Mean Corpuscular Volume 84.9 Mean Corpuscular Hemoglobin 29.6 Mean Corpuscular Hemoglobin Concent 34.9 Red Cell Distribution Width 13.3 Platelet Count 242 Mean Platelet Volume 8.9 Neutrophils (%) (Auto) 93.7 Lymphocytes (%) (Auto) 2.3 Monocytes (%) (Auto) 3.9 Eosinophils (%) (Auto) 0.0 Basophils (%) (Auto) 0.1 Neutrophils # (Auto) 14.3 Lymphocytes # (Auto) 0.4 Monocytes # (Auto) 0.6 Eosinophils # (Auto) 0.0 Basophils # (Auto) 0.0 CBC Comment AUTO DIFF Differential Comment Blood Urea Nitrogen 5 Creatinine 0.75 Random Glucose 119 Total Protein 7.7 Albumin 4.1 Calcium Level 9.1 Phosphorus Level 3.9 Magnesium Level 1.6 Alkaline Phosphatase 63 Aspartate Amino Transf (AST/SGOT) 21 Alanine Aminotransferase (ALT/SGPT) 30 Total Bilirubin 0.9 Sodium Level 135 Potassium Level 3.9 Chloride Level 101 Carbon Dioxide Level 24.0 Anion Gap 10 Estimat Glomerular Filtration Rate 96 Hemoglobin A1c 4.8 Free Thyroxine 1.41 Thyroid Stimulating Hormone 3rd Gen 1.430 Radiology Last 48 hours Impressions Abdomen/Pelvis/Transvag US 04/25/172022 Signed Impressions: Service Date/Time: Tuesday, April 25, 2017 21:11 - CONCLUSION: 1. Unremarkable ultrasound examination of the pelvis. Sulaiman Lizarraga MD Abdomen/Pelvis CT 04/25/17 0000 Signed Impressions: Service Date/Time: Tuesday, April 25, 2017 18:32 - CONCLUSION: 1. No evidence of acute abdominal or pelvic process. No masses are identified. Sulaiman Lizarraga MD Cardiovascular: Regular Lungs: Clear Abdomen: Non-distended, Other (lap sites c/d/i; minimally tender ) Extremities: No edema A/P Problem List: (1) Status post laparoscopic appendectomy ICD Codes: Z90.49 - Acquired absence of other specified parts of digestive tract Status: Acute Assessment and Plan 21 year old female POD1 dx lap; lap appy -+nausea/vomiting this AM-- now resolved -Regular diet -Pain control -DC after lunch if tolerated -RX for pain on chart -Follow up with Dr. Guzman next Attending Statement NOTE FOR SURGICAL ATTENDING, DR. ALEX GUZMAN Ambulating halls Discussed surgical intervention with the patient Gave her her photos from the operating room She overall feels better Possible discharge today follow-up next week in the office I agree with above assessment and plan. The exam, history, and the medical decision-making described in the above note were completed with the assistance of the mid-level provider. I reviewed and agree with the findings presented. I attest that I had a [id number] encounter with the patient on the same day, and personally performed and documented my assessment and findings in the medical record. The following services were provided during this hospital visit: Chart data review, vital sign assessments/reviewing monitor data Review of consultations notes if present. Medication orders/review and/or management Ordering and/or reviewing lab tests Ordering and/or interpreting/reviewing x-rays and/or diagnostic studies Care of the patient and discussion of the patient with the care team Documentation time To help prompt me to consider important information that might be impacting today's encounter and assessment, information from prior notes written by myself or my colleagues may have been "brought forward/copy and pasted" into today's note. Prema Fishman/First [employer] DE LA O Apr 27, 2017 14:51 Alex Guzman MD Apr 27, 2017 16:40
[2017-04-27 16:00] VITALS: TEMP 97.9
--- NOTE | 2017-04-27 21:13 | HHI.DS ---
Discharge Summary Admission Date Apr 25, 2017 at 22:51 Discharge Date: Apr 27, 2017 Admitting Diagnosis Right lower abdominal pain (1) Abdominal pain ICD Code: R10.9 - Unspecified abdominal pain Status: Acute Procedures 1. Diagnostic laparoscopy. 2. Laparoscopic appendectomy. Brief History - From Admission 21 y/o female with no medical history presented to the ED with complaints of abdominal pain. Patient states for the last month she has been vomiting when she eats and this morning she developed a fever of 101 with RLQ abdominal pain. She states the pain was an 8/10, intermittent, stabbing to the RLQ with no radiation, and with associated nausea, worse with palpation. She states the morphine has helped lesson the pain. She was seen at her pcp office and was told to come to the hospital for evaluation. She denies any chest pain, or sob. CBC/BMP: 04/27/17 0535 04/27/17 0535 Significant Findings Laboratory Tests Test 04/25/17 19:30 04/25/17 19:55 04/25/17 20:33 04/26/17 06:36 Estimat Glomerular Filtration Rate 86 ML/MIN (>89) 81 ML/MIN (>89) Urine Specific [place] GREATER THAN 1.050 Urine Protein 30 mg/dL (NEG-TRACE) Urine Ketones 10 mg/dL (NEG) Test 04/27/17 05:35 White Blood Count 15.3 TH/MM3 (4.0-11.0) Neutrophils (%) (Auto) 93.7 % (16.0-70.0) Lymphocytes (%) (Auto) 2.3 % (9.0-44.0) Neutrophils # (Auto) 14.3 TH/MM3 (1.8-7.7) Lymphocytes # (Auto) 0.4 TH/MM3 (1.0-4.8) Blood Urea Nitrogen 5 MG/DL (7-18) Random Glucose 119 MG/DL (74-106) Sodium Level 135 MEQ/L (136-145) Imaging Last Impressions Abdomen/Pelvis/Transvag US 04/25/172022 Signed Impressions: Service Date/Time: Tuesday, April 25, 2017 21:11 - CONCLUSION: 1. Unremarkable ultrasound examination of the pelvis. Sulaiman Lizarraga MD Abdomen/Pelvis CT 04/25/17 0000 Signed Impressions: Service Date/Time: Tuesday, April 25, 2017 18:32 - CONCLUSION: 1. No evidence of acute abdominal or pelvic process. No masses are identified. Sulaiman Lizarraga MD PE at Discharge GENERAL: AWAKE ALERT AND ORIENTED X3 TALKATIVE AND COOPERATIVE SKIN: Warm and dry. HEAD: Atraumatic. Normocephalic. EYES: Pupils equal and round. No scleral icterus. No injection or drainage. EOMI ENT: No nasal bleeding or discharge. Mucous membranes pink and moist. TONGUE MIDLINE NECK: Trachea midline. No JVD. SUPPLE CARDIOVASCULAR: Regular rate and rhythm. S1, S2 NO S3 NO S4 NO HEAVE OR THRILL RESPIRATORY: No accessory muscle use. Clear to auscultation. Breath sounds equal bilaterally. GASTROINTESTINAL: Abdomen soft, nondistended. Hepatic and splenic margins not palpable. TENDER RIGHT LOWER QUADRANT MUSCULOSKELETAL: Extremities without clubbing, cyanosis, or edema. No obvious deformities. NEUROLOGICAL: Awake and alert. No obvious cranial nerve deficits. Motor grossly within normal limits. Five out of 5 muscle strength in the arms and legs. Normal speech. PSYCHIATRIC: Appropriate mood and affect; insight and judgment normal. Pt update on day of discharge Patient is currently doing well. She had some nausea vomiting. However that has subsided. Tolerated some food. General surgery recommended discharge home if patient tolerates lunch. Hospital Course 21 y/o female with no medical history presented to the ED with complaints of abdominal pain - RLQ pain. CT abdomen pelvis showed nonvisualization of appendix. General surgery was consulted. Patient received Zosyn prior to surgery. Patient underwent diagnostic laparoscopy and laparoscopic appendectomy. Op note indicates no gangrenous or infected appendix. Antibiotics was not continued upon discharge. Postsurgery patient had some mild nausea and vomiting. She tolerated diet well. After discussing with surgery, patient was discharged after lunch. Pt Condition on Discharge: Good Discharge Disposition: Discharge Home Discharge Time: <= 30 minutes Discharge Instructions DIET: Follow Instructions for: As Tolerated, No Restrictions Activities you can perform: Regular-No Restrictions Follow up Referrals: Surgical - 05/04/17 with Alex Guzman MD Appt set for May 04 at 10:10AM New Medications: Hydrocodone/Acetaminophen (Hydrocodone-Acetamin 5-325 mg) 5 Mg-325 Mg Tablet 1 TAB PO Q4H for Pain Management, #30 TAB Marino Groves DO Apr 27, 2017 21:12
== END 2017-04-27 18:58 | disposition home or self-care (01) ==
LOC: NEPD 16:32 → NEDA 22:51 → NEPHCDU 04-26 00:32 → N06B 04-26 22:37
PROVIDERS: ADMIT Hospitalist; ATTEND Hospitalist
DX: R10.31 Right lower quadrant pain (principal); K65.9 Peritonitis, unspecified; N89.8 Other specified noninflammatory disorders of vagina
CPT/HCPCS: 00840; 44970; 74177; 76830; 76856; 80048; 80053; 81001; 83036; 83690; 83735; 84100; 84439; 84443; 84703; 85025; 85610; 85730; 87210; 87491; 87591; 88304; 93975; 96361; 96365; 96366; 96375; 96376; 99285; G0378; J1100; J1170; J1885; J2175; J2250; J2270; J2405; J2543; J7030; Q9967

== ENCOUNTER 2017-04-29 11:51 | Emergency (ER) | payer OTHER ==
[~2017-04-29] VITALS: Ht 157.5 cm; Wt 60.0 kg
[~2017-04-29 11:51] MED LIST: HYDR-3516 PO
[2017-04-29 11:57] VITALS: BP 115/71; PULSE 105; RESP 20; TEMP 98; O2SAT 98
--- NOTE | 2017-04-29 12:50 | PD ---
HPI Chief Complaint: Abdominal Pain Time Seen by Provider: 12:24 Travel History International Travel<30 days: No Contact w/Intl Traveler<30days: No Traveled to known affect area: No History of Present Illness HPI Patient presents today postop from an appendectomy done by Dr. Guzman. Patient returns complaining of ongoing nausea and vomiting denies any active pain denies any fever denies any rash denies any headache chest pain or shortness of breath at this time. She rates the nausea at about 6-7 out of 10. Again reiterating no pain at this moment. Patient was discharged home on [place] but without any antiemetic medicine. PFSH Past Medical History Asthma: Yes Diabetes: Yes (hypoglycemia) Patient Takes Glucophage: No ?: Not LMP: 04/28/17 Social History Alcohol Use: Yes (OCC) Tobacco Use: No Substance Use: No Allergies-Medications (Allergen,Severity, Reaction): Coded Allergies: No Known Drug Allergies (Verified Allergy, Unknown, 04/29/17) Uncoded Allergies: TEMP CHANGE ALLERGY (Adverse Reaction, Intermediate, 04/25/17) PT BREAKS OUT INTO HIVES WITH MODERATE TEMP CHANGES Reported Meds & Prescriptions Reported Meds & Active Scripts Active Hydrocodone-Acetamin 5-325 mg (Hydrocodone/Acetaminophen) 5 Mg-325 Mg Tablet 1 Tab PO Q4H Review of Systems General / Constitutional: No: Fever Eyes: No: Visual changes HENT: No: Headaches Cardiovascular: No: Chest Pain or Discomfort Respiratory: No: Shortness of Breath Gastrointestinal: Positive: Nausea Genitourinary: No: Dysuria Musculoskeletal: No: Pain Skin: No Rash Neurologic: No: Weakness Psychiatric: No: Depression Endocrine: No: Polydipsia Hematologic/Lymphatic: No: Easy Bruising Physical Exam Narrative GENERAL: SKIN: Warm and dry. Laparoscopic incision noted which is healing well and does not show any evidence of cellulitis or infection. HEAD: Atraumatic. Normocephalic. EYES: Pupils equal and round. No scleral icterus. No injection or drainage. ENT: No nasal bleeding or discharge. Mucous membranes pink and moist. NECK: Trachea midline. No JVD. CARDIOVASCULAR: Regular rate and rhythm. RESPIRATORY: No accessory muscle use. Clear to auscultation. Breath sounds equal bilaterally. GASTROINTESTINAL: Abdomen soft, non-tender, nondistended. MUSCULOSKELETAL: Extremities without clubbing, cyanosis, or edema. No obvious deformities. NEUROLOGICAL: Awake and alert. No obvious cranial nerve deficits. Motor grossly within normal limits. Five out of 5 muscle strength in the arms and legs. Normal speech. PSYCHIATRIC: Appropriate mood and affect; insight and judgment normal. Data Data Last Documented VS Vital Signs Date Time Temp Pulse Resp B/P (MAP) Pulse Ox O2 Delivery O2 Flow Rate FiO2 04/29/17 13:21 18 04/29/17 13:20 87 127/71 (89) 100 Room Air 04/29/17 11:57 98.0 Orders Orders Complete Blood Count With Diff (04/29/17 12:59) Comprehensive Metabolic Panel (04/29/17 12:59) Lipase (04/29/17 12:59) Urinalysis - C+S If Indicated (04/29/17 12:59) Iv Access Insert/Monitor (04/29/17 12:59) Ecg Monitoring (04/29/17 12:59) Oximetry (04/29/17 12:59) Ondansetron Inj (Zofran Inj) (04/29/17 13:00) Sodium Chlor 0.9% 1000 Ml Inj (Ns 1000 M (04/29/17 12:59) Labs Laboratory Tests Test 04/29/17 13:57 White Blood Count 10.0 TH/MM3 Red Blood Count 4.55 MIL/MM3 Hemoglobin 13.4 GM/DL Hematocrit 38.8 % Mean Corpuscular Volume 85.3 FL Mean Corpuscular Hemoglobin 29.4 PG Mean Corpuscular Hemoglobin Concent 34.5 % Red Cell Distribution Width 13.7 % Platelet Count 283 TH/MM3 Mean Platelet Volume 9.1 FL Neutrophils (%) (Auto) 87.5 % Lymphocytes (%) (Auto) 6.7 % Monocytes (%) (Auto) 4.1 % Eosinophils (%) (Auto) 1.5 % Basophils (%) (Auto) 0.2 % Neutrophils # (Auto) 8.7 TH/MM3 Lymphocytes # (Auto) 0.7 TH/MM3 Monocytes # (Auto) 0.4 TH/MM3 Eosinophils # (Auto) 0.1 TH/MM3 Basophils # (Auto) 0.0 TH/MM3 CBC Comment DIFF FINAL Differential Comment Urine Color YELLOW Urine Turbidity CLEAR Urine pH 7.0 Urine Specific [place] 1.012 Urine Protein NEG mg/dL Urine Glucose (UA) NEG mg/dL Urine Ketones 10 mg/dL Urine Occult Blood NEG Urine Nitrite NEG Urine Bilirubin NEG Urine Urobilinogen 2.0 MG/DL Urine Leukocyte Esterase NEG Urine RBC LESS THAN 1 /hpf Urine WBC 1 /hpf Urine Squamous Epithelial Cells 3 /hpf Urine Mucus FEW /lpf Microscopic Urinalysis Comment CULT NOT INDICATED Blood Urea Nitrogen 7 MG/DL Creatinine 0.68 MG/DL Random Glucose 87 MG/DL Total Protein 7.2 GM/DL Albumin 3.3 GM/DL Calcium Level 8.5 MG/DL Alkaline Phosphatase 61 U/L Aspartate Amino Transf (AST/SGOT) 42 U/L Alanine Aminotransferase (ALT/SGPT) 19 U/L Total Bilirubin 0.6 MG/DL Sodium Level 134 MEQ/L Potassium Level 4.5 MEQ/L Chloride Level 105 MEQ/L Carbon Dioxide Level 21.4 MEQ/L Anion Gap 8 MEQ/L Estimat Glomerular Filtration Rate 107 ML/MIN Lipase 77 U/L MDM Medical Decision Making Medical Screen Exam Complete: Yes Emergency Medical Condition: Yes Medical Record Reviewed: Yes Differential Diagnosis Dehydration versus electrolyte abnormalities versus hypoglycemia versus kidney failure Narrative Course CBC shows no leukocytosis no anemia and normal platelet count. However it does show a mild left shift of 87% neutrophils, this is expected as a postop change and not necessarily indicating of any kind of acute infection. UA does not show any evidence of UTI Complete metabolic profile shows normal electrolytes, normal kidney function normal liver function, normal lipase. Physician Communication Physician Communication Dr. Guzman will be called & this case discussED fully. Recommendation to Zofran for nausea control. States that if electrolytes are okay and no other abnormality on the blood work and the patient may be returned home Diagnosis Primary Impression: Postoperative nausea and vomiting Patient Instructions: Acute Nausea and Vomiting (ED), Full Liquid Diet (DC), General Instructions Scripts Ondansetron Odt (Zofran Odt) 8 Mg Tab 8 MG SL Q8H Y for NAUSEA OR VOMITING, #21 TAB 0 Refills Prov: Tomás Morrissey MD 04/29/17 Disposition: 01 DISCHARGE HOME Condition: Stable Tomás Morrissey MD Apr 29, 2017 12:50
[2017-04-29] MEDS ORDERED: SODIUM CHLOR 0.9% 1000 ML INJ 1,000 ML IV SCH (12:59)
[2017-04-29] MEDS ORDERED: ONDANSETRON HCL 4 MG/2 ML VIAL IVP ONE (13:00)
[2017-04-29 13:20] VITALS: BP 127/71; PULSE 87; PULSE 89; RESP 18; O2SAT 100
[2017-04-29 14:19] LABS: AUTOMATED NEUTROPHIL # 8.7 TH/MM3 (1.8-7.7); BASOPHIL % 0.2 % (0.0-2.0); EOSINOPHIL # 0.1 TH/MM3 (0-0.4); EOSINOPHIL % 1.5 % (0.0-4.0); HEMATOCRIT 38.8 % (35.0-46.0); HEMOGLOBIN 13.4 GM/DL (11.6-15.3); LYMPH % 6.7 % (9.0-44.0); LYMPHOCYTE # 0.7 TH/MM3 (1.0-4.8); MEAN CELL VOLUME 85.3 FL (80.0-100.0); MEAN CORPUSCULAR HEMOGLOBIN 29.4 PG (27.0-34.0); MEAN CORPUSCULAR HGB CONC 34.5 % (32.0-36.0); MEAN PLATELET VOLUME 9.1 FL (7.0-11.0); MONO % 4.1 % (0.0-8.0); MONOCYTE # 0.4 TH/MM3 (0-0.9); NEUT % 87.5 % (16.0-70.0); PLATELET COUNT 283 TH/MM3 (150-450); RED BLOOD COUNT 4.55 MIL/MM3 (4.00-5.30); RED CELL DISTRIBUTION WIDTH 13.7 % (11.6-17.2)
[2017-04-29 14:37] LABS: BILIRUBIN, URINE NEG (NEG); BLOOD, URINE NEG (NEG); GLUCOSE,URINE NEG (NEG); KETONE, URINE 10 mg/dL (NEG); MUCUS URINE FEW /lpf (OCC); NITRITE,URINE NEG (NEG); SQUAMOUS EPITHELIAL CELL URINE 3 /hpf (0-5); URINE COLOR YELLOW (YELLW/STRAW); URINE LEUKOCYTE ESTERASE NEG (NEG)
[2017-04-29 14:48] LABS: ALBUMIN 3.3 GM/DL (3.4-5.0); ALKALINE PHOSPHATASE 61 U/L (45-117); ALT (GPT) 19 U/L (10-53); AST (GOT) 42 U/L (15-37); BICARBONATE 21.4 MEQ/L (21.0-32.0); BLOOD UREA NITROGEN 7 MG/DL (7-18); CALCIUM 8.5 MG/DL (8.5-10.1); CHLORIDE 105 MEQ/L (98-107); CREATININE 0.68 MG/DL (0.50-1.00); GLOMERULAR FILTRATION RATE 107 ML/MIN (>89); GLUCOSE,RANDOM 87 MG/DL (74-106); SODIUM (NA) 134 MEQ/L (136-145); TOTAL BILIRUBIN ADULT 0.6 MG/DL (0.2-1.0); TOTAL PROTEIN 7.2 GM/DL (6.4-8.2)
[2017-04-29] MEDS ORDERED: ZOFR8TAB4 SL (15:25)
[2017-04-29] MEDS ORDERED: ONDANSETRON HCL 4 MG/2 ML VIAL IV PUSH ONE (15:45)
[2017-04-29 16:00] VITALS: BP 114/66; PULSE 83; RESP 15; O2SAT 98
== END 2017-04-29 17:16 | disposition home or self-care (01) ==
LOC: NEPC 11:51
DX: R11.2 Nausea with vomiting, unspecified (principal); J45.909 Unspecified asthma, uncomplicated; E11.9 Type 2 diabetes mellitus without complications
CPT/HCPCS: 80053; 81001; 83690; 85025; 96361; 96374; 96376; 99284; J2405; J7030